=== PATIENT | female | born 2000 | race Caucasian/White ===

== ENCOUNTER 2021-07-14 00:10 | Emergency (ER) | payer OTHER ==
[~2021-07-14] VITALS: Ht 170.2 cm; Wt 88.9 kg
[~2021-07-14 00:10] MED LIST: ALBUTEROL1.25 MG/3 IH; FLOVENT HFA12 GM INH; IRON325 M1 PO; SINGULAIR5 MG PO; VENTOLIN HFA18 GM IH; ZYRTEC10 MG PO
--- OUTSIDE RECORDS SUMMARY | 2021-07-14 00:14 | XMS ---
PreManage Notification: [employer] [place] Security Continuity Director Events No recent Security Events currently on file CRITERIA MET - ED - Positive COVID-19 Lab Result - [facility] RADHA AMES Community Health Worker 08/09/2019-Current PHONE: [phone] Radha Community Health Worker 10/18/2019-Current PHONE: [phone] [facility] Current PHONE: Unknown [place] has no Care Guidelines for this patient. E.D. VISIT COUNT (12 MO.) [address] [facility] [place] [id number] [place] TOTAL 3 NOTE: Visits indicate total known visits. ED/UCC VISIT TRACKING (12 MO.) 07/14/2021 00:11 [facility] [place] TYPE: Emergency COMPLAINT: - VOMITING, ABD PAIN 06/11/2021 20:46 [facility] [place] TYPE: Emergency DIAGNOSES: - Acute upper respiratory infection, unspecified - SHORTNESS OF BREATH - Mild intermittent asthma with (acute) exacerbation 03/31/2021 08:54 [facility] [place] TYPE: Emergency DIAGNOSES: - Mild intermittent asthma with (acute) exacerbation - ASTHMA ATTACK INPATIENT VISIT TRACKING (12 MO.) 10/07/2020 22:36 [facility] [place] TYPE: OBGYN DIAGNOSES: 0. LABOR CHECK 0. TERM LABOR/VAGINAL 10/05/2020 18:20 [facility] [place] TYPE: Labor \T\ Delivery DIAGNOSES: 0. LABOR CHECK [email or web address]
[2021-07-14] MEDS ORDERED: OMEPRAZOLE20 MG PO (01:43)
== END 2021-07-14 01:51 | disposition home or self-care (01) ==
LOC: ED 00:10
DX: K30 Functional dyspepsia (principal); J45.909 Unspecified asthma, uncomplicated; Z79.899 Other long term (current) drug therapy
CPT/HCPCS: 76705; 80053; 81001; 83690; 84703; 85025; 96374; 96375; 99284-25; C9113; J2405; J7030